=== PATIENT | female | born 1980 | race Caucasian/White ===

== ENCOUNTER 2016-08-18 05:08 | Day surgery (SDC) | payer BC ==
[2016-08-13 15:53] VITALS: BMI 25.4
[2016-08-18] MEDS ORDERED: KETOROLAC TROMETHAMINE 30 MG/1 ML VIAL ONE (10:30)
[2016-08-18] MEDS ORDERED: MIDAZOLAM HCL 2 MG/2 ML SINGLE DOSE VIAL ONE (10:31)
[2016-08-18] MEDS ORDERED: PROPOFOL 20 ML ONE ×2 (10:32→10:52)
[2016-08-18] MEDS ORDERED: LIDOCAINE HCL/PF 2% SDV 5ML VIAL ONE (10:32)
--- NOTE | 2016-08-18 10:41 | HP ---
Past Medical History - Primary Care Physician PCP:: Moon Maynard - Admission Chief Complaint: menometrorrhagia, EM polyp History of Present Illness: 35 yo f with hxof irregular vaginal bleeding , sono showed EM polyp admitted for hysteroscopy, EM polypectomy, rna explained History Source: Patient Limitations to Obtaining History: No Limitations - Past Medical History ...: 3 ...Para: 2 ...Spon : 1 Additional OB History: c/s Endocrine: Yes: Hypothyroidism - Past Surgical History Past Surgical History: Yes: Hx Myomectomy: No Hx Transabdominal Cerclage: No - Smoking History Smoking history: Never smoked Have you smoked in the past 12 months: No - Alcohol/Substance Use Hx Alcohol Use: Yes (RARE) - Social History Usual Living Arrangement: Yes: With Spouse History of Recent Travel: No Home Medications - Allergies Allergies/Adverse Reactions: Allergies Allergy/AdvReac Type Severity Reaction Status Date / Time No Known Allergies Allergy Verified 08/18/16 08:57 - Home Medications Home Medications: Ambulatory Orders Cholecalciferol (Vitamin D3) [Vitamin D3] 1,000 unit PO DAILY 08/18/16 Levothyroxine [Synthroid -] 88 mcg PO HS 08/18/16 Review of Systems - Review of Systems Constitutional: reports: No Symptoms HENT: reports: No Symptoms Neck: reports: No Symptoms Cardiovascular: reports: No Symptoms Respiratory: reports: No Symptoms Gastrointestinal: reports: No Symptoms Genitourinary: reports: Vaginal Bleeding Breasts: reports: No Symptoms Reported Musculoskeletal: reports: No Symptoms Integumentary: reports: No Symptoms Neurological: reports: No Symptoms Endocrine: reports: No Symptoms Psychiatric: reports: No Symptoms Physical Exam-[employer] Vital Signs: Vital Signs Temperature 97.9 F 08/18/16 08:54 Pulse Rate 77 08/18/16 08:54 Respiratory Rate 20 08/18/16 08:54 Blood Pressure 120/68 08/18/16 08:54 O2 Sat by Pulse Oximetry (%) 100 08/18/16 08:53 Constitutional: Yes: Well Nourished, No Distress, Calm Eyes: Yes: WNL, Conjunctiva Clear, EOM Intact HENT: Yes: WNL, Atraumatic, Normocephalic Neck: Yes: WNL, Supple, Trachea Midline Cardiovascular: Yes: WNL, Regular Rate and Rhythm Respiratory: Yes: WNL, Regular, CTA Bilaterally Gastrointestinal: Yes: WNL ...Rectal Exam: Yes: WNL Renal/: Yes: WNL External Genitalia: Yes: Normal Vaginal Exam: Yes: Normal Cervix: Yes: Normal Uterus: Yes: Normal Adnexa: Normal: Left, Right Breast(s): Yes: WNL Musculoskeletal: Yes: WNL Extremities: Yes: WNL Integumentary: Yes: WNL Neurological: Yes: WNL, Alert, Oriented ...Motor Strength: WNL Psychiatric: Yes: WNL, Alert, Oriented Problem List - Problem (1) Menometrorrhagia Code(s): N92.1 - EXCESSIVE AND FREQUENT MENSTRUATION WITH IRREGULAR CYCLE (2) Endometrial polyp Code(s): N84.0 - POLYP OF CORPUS UTERI Assessment/Plan hysteroscopy, polypectomy
[2016-08-18] MEDS ORDERED: ACETAMINOPHEN 1000 MG/100 ML VIAL (NON FORMULARY) IVPB ONE (11:14)
[2016-08-18] MEDS ORDERED: ONDANSETRON 4 MG/2 ML VIAL IVPUSH PRN (11:14)
[2016-08-18] MEDS ORDERED: oxyCODONE HCL 5 MG TABLET PO PRN ×2 (11:14→11:39)
[2016-08-18] MEDS ORDERED: LACTATED RINGERS SOLUTION 1,000 ML IV SCH (11:15)
[2016-08-18] MEDS ORDERED: ACETAMINOPHEN INJECTION 100 ML IVPB ONE (11:33)
[2016-08-18] MEDS ORDERED: IBUPROFEN 600 MG TABLET (FP) PO PRN (11:39)
[2016-08-18] MEDS ORDERED: IBUPROFEN 800 MG/8 ML IJ IVPB PRN (11:39)
[2016-08-18] MEDS ORDERED: ONDANSETRON 4 MG/2 ML VIAL IVPB PRN (11:39)
[2016-08-18] MEDS ORDERED: ELECTROLYTE-148 SOLN 1,000 ML IV SCH (11:45)
[2016-08-18 11:58] VITALS: TEMP 97.4
[2016-08-18 13:06] VITALS: BP 100/73; PULSE 76
--- NOTE | 2016-08-19 00:40 | OP ---
DATE OF OPERATION: 08/18/2016 PREOPERATIVE DIAGNOSIS: Menometrorrhagia, endometrial polyp. POSTOPERATIVE DIAGNOSIS: Menometrorrhagia, endometrial polyp. PROCEDURE: Hysteroscopy, dilation and curettage, and polypectomy. SURGEON: Mono Maynard M.D. ANESTHESIA: General. ANESTHESIOLOGIST: Elodia Maldonado M.D. ESTIMATED BLOOD LOSS: 50 mL. OPERATION: Hysteroscopy, dilation and curettage and polypectomy. SURGEON: Mono Maynard M.D. ANESTHESIA: General. OPERATION: Patient was taken to operating room, had adequate general anesthesia. Examination under anesthesia revealed the cervix to be clean, no gross lesion. Uterus was normal size, retroverted. Adnexa, no masses were palpable. Then, with a weighted speculum in the vagina, anterior lip of the cervix was grasped with a single-tooth tenaculum. Uterine cavity was sounded to 7 cm. Then the hysteroscope was introduced into the uterine cavity and the cervical canal appeared to be normal. Endometrium appeared to be normal. There was a small polyp at the fundal portion of the uterus. region was identified. No abnormality was seen. No fibroid was seen. Then hysteroscope was withdrawn, the cervix was gradually dilated with a Hegar dilator, and then uterine cavity was curetted. A small amount of tissue was obtained, then the hysteroscope was introduced, and then polyp was removed in its entirety, no complications. The patient tolerated procedure well, left the OR in good condition. MONO MAYNARD M.D. [id number]
--- NOTE | 2016-08-19 14:18 | PATH ---
Surgical Pathology Report Patient Name: LUÍS GOETZ [facility]. Rec. #: [id number] /Age/Gender: 1980 (Age: 35) / F Account: [id number] Location: [facility] SUR[facility] Taken: 08/18/2016 Received: 08/18/2016 Reported: 08/19/2016 Physicians: Mono Maynard M.D. Specimen(s) Received ENDOMETRIAL CURETTINGS Clinical History Cervical polyp Final Diagnosis ENDOMETRIUM, CURETTAGE: POLYPOID FRAGMENTS OF DISORDERED PROLIFERATIVE ENDOMETRIUM WITH FOCAL AREA SUGGESTIVE OF ENDOMETRIAL POLYP AND FOCAL STROMAL BREAKDOWN CHANGE. BACKGROUND FRAGMENTS OF PROLIFERATIVE ENDOMETRIUM. FRAGMENTS OF BENIGN ENDOCERVICAL TISSUE WITH CHRONIC CERVICITIS. FRAGMENTS OF BENIGN SQUAMOUS EPITHELIUM. Electronically Signed Jairo Prince M.D. Gross Description Received in formalin labeled "endometrial curettings" is a 4.5 x 2.8 x 0.4 cm aggregate of red-brown soft tissue fragments. The formalin is filtered and the specimen is entirely submitted in 3 cassettes. /08/18/2016 [facility]08/18/2016
== END 2016-08-18 13:06 | disposition home or self-care (01) ==
LOC: JASU-SURG 05:08
PROVIDERS: ATTEND Obstetrics & Gynecology
PROC: 0UB98ZX Excision of Uterus, Via Natural or Artificial Opening Endoscopic, Diagnostic (ICD-10-PCS; principal; 2016-08-18 10:00)
PROC: 0UDB8ZX Extraction of Endometrium, Via Natural or Artificial Opening Endoscopic, Diagnostic (ICD-10-PCS; 2016-08-18 10:00)
DX: N92.0 Excessive and frequent menstruation with regular cycle (principal); N84.0 Polyp of corpus uteri
CPT/HCPCS: 88305-TC; 94760

== ENCOUNTER 2018-06-21 05:13 | Day surgery (SDC) | payer BC ==
[2018-06-17 13:08] VITALS: BMI 26.6
--- NOTE | 2018-06-21 09:11 | HP ---
History & Physical Update - Physical Physical: No Change - Assessment Assessment: No Change - Plan Plan: No Change (H&H reviwed , no changes, for hysteroscopy, D&C , polypectomy)
[2018-06-21] MEDS ORDERED: PROPOFOL 20 ML ONE (09:56)
[2018-06-21] MEDS ORDERED: MIDAZOLAM HCL 2 MG/2 ML SINGLE DOSE VIAL ONE (09:56)
[2018-06-21] MEDS ORDERED: DEXAMETHASONE SOD PHOSPHATE 4 MG/1 ML VIAL ONE (09:57)
[2018-06-21] MEDS ORDERED: LIDOCAINE HCL/PF 2% SDV 5ML VIAL ONE (09:57)
[2018-06-21] MEDS ORDERED: DEXMEDETOMIDINE HCL 200 MCG/2 ML IVPB ONE (10:10)
[2018-06-21] MEDS ORDERED: ONDANSETRON 4 MG/2 ML VIAL IVPUSH PRN (10:28)
[2018-06-21] MEDS ORDERED: oxyCODONE HCL 5 MG TABLET PO PRN ×2 (10:28→10:40)
[2018-06-21] MEDS ORDERED: IBUPROFEN 600 MG TABLET (FP) PO PRN (10:28)
[2018-06-21] MEDS ORDERED: IBUPROFEN 800 MG/8 ML IJ IVPB PRN (10:28)
[2018-06-21] MEDS ORDERED: ELECTROLYTE-148 SOLN 1,000 ML IV SCH (10:30)
[2018-06-21] MEDS ORDERED: KETOROLAC TROMETHAMINE 30 MG/1 ML VIAL ONE (10:42)
[2018-06-21] MEDS ORDERED: LACTATED RINGERS SOLUTION 1,000 ML IV SCH (10:45)
[2018-06-21 14:21] VITALS: BP 94/56; PULSE 84; TEMP 98
[2018-06-21] MEDS ORDERED: LEVOTHYROXINE NA 88 MCG TABLET (FP) PO SCH (22:00)
--- NOTE | 2018-06-22 12:02 | OP ---
DATE OF OPERATION: 06/21/2018 PREOPERATIVE DIAGNOSES: Metrorrhagia, endometrial polyp. PROCEDURE: Hysteroscopy, dilatation and curettage and endometrial polypectomy. SURGEON: Mono Maynard MD ANESTHESIA: General. ESTIMATED BLOOD LOSS: 25 mL. OPERATION: Patient was taken to the operating room. Under adequate general anesthesia in dorsal lithotomy position examination under anesthesia revealed external genitalia to be normal. Vagina was normal. Cervix was clean, no lesion. Uterus normal size. Adnexa: No masses were palpable. Then with a weighted speculum in the vagina anterior lip of the cervix was grasped with single-tooth tenaculum. Uterine cavity was sounded to 8 cm. Then Symphion resectoscope hysteroscope was introduced. Visualization of endocervical canal appeared to be normal. There was a large 2-cm endometrial polyp noted on the posterior wall of the uterus in the mid body of the uterus. Both cornual regions were identified. No other abnormality noted. Then with the Symphion resectoscope the polyp was resected and removed in its entirety. Then endometrium was curetted. The patient tolerated the procedure well. Left the OR in good condition. Shantell [id number]
--- NOTE | 2018-06-22 15:59 | PATH ---
Surgical Pathology Report Patient Name: LUÍS GOETZ [facility]. Rec. #: [id number] /Age/Gender: 1980 (Age: 37) / F Account: [id number] Location: [facility] Taken: 06/21/2018 Received: 06/21/2018 Reported: 06/22/2018 Physicians: Mono Maynard M.D. Specimen(s) Received A: ENDOCERVICAL POLYP B: ENDOMETRIAL CURETTINGS Clinical History Endometrial polyp, irregular bleeding Final Diagnosis A. ENDOMETRIAL POLYP, HYSTEROSCOPIC POLYPECTOMY: FRAGMENTS OF ENDOMETRIAL POLYP, SUPERFICIAL MYOMETRIUM, AND BENIGN ENDOCERVICAL TISSUE. B. ENDOMETRIAL CURETTINGS, DILATION AND CURETTAGE: FRAGMENTS OF ENDOMETRIAL POLYP, PROLIFERATIVE ENDOMETRIUM, AND BENIGN CERVICAL TISSUE. Electronically Signed Anh Jarquin M.D. Gross Description A. Received in formalin labeled "endometrial polyp," is a 2.4 x 2.0 x 0.3 cm aggregate of steward soft tissue fragments. The formalin is filtered and the specimen is entirely submitted in one cassette. B. Received in formalin labeled "endometrial curettings," is a 2.1 x 2.0 x 0.2 cm aggregate of steward-brown soft tissue fragments. The formalin is filtered and the specimen is entirely submitted in one cassette. 06/21/201806/21/2018
== END 2018-06-21 13:35 | disposition home or self-care (01) ==
LOC: JASU-SURG 05:13
PROVIDERS: ATTEND Obstetrics & Gynecology
PROC: 0UJD8ZZ Inspection of Uterus and Cervix, Via Natural or Artificial Opening Endoscopic (ICD-10-PCS; 2018-06-21)
PROC: 0UB97ZX Excision of Uterus, Via Natural or Artificial Opening, Diagnostic (ICD-10-PCS; principal; 2018-06-21 10:00)
PROC: 0UDB7ZX Extraction of Endometrium, Via Natural or Artificial Opening, Diagnostic (ICD-10-PCS; 2018-06-21 10:00)
DX: N92.1 Excessive and frequent menstruation with irregular cycle (principal); N84.0 Polyp of corpus uteri
CPT/HCPCS: 84703; 88305-TC; 94760

== ENCOUNTER 2021-10-08 12:55 | Emergency (ER) | payer BC ==
[2021-10-08 13:14] VITALS: BP 106/70; PULSE 90; TEMP 98.2; BMI 27.4
[2021-10-09] MEDS ORDERED: LORazepam 1 MG TABLET ONE (06:59)
== END 2021-10-08 13:31 | disposition home or self-care (01) ==
LOC: JERFT 12:55
DX: J06.9 Acute upper respiratory infection, unspecified (principal); R05.1 Acute cough; R09.81 Nasal congestion
CPT/HCPCS: 87651; 99283-25

== ENCOUNTER 2022-01-30 14:00 | Emergency (ER) | payer BC ==
[2022-01-30 14:11] VITALS: BP 136/88; PULSE 96; RESP 18; TEMP 97.8; BMI 28.3
[2022-01-30 14:31] LABS: BASO % 0.3 % (0-2.0); EOS % 0.1 % (0-4.5); HEMATOCRIT 43.7 % (32.4-45.2); HEMOGLOBIN 14.3 GM/dL (10.7-15.3); LYMPH % 25.8 % (8-40); MCH 29.1 pg (25.7-33.7); MCHC 32.8 g/dl (32.0-36.0); MEAN CELL VOLUME 88.7 fl (80-96); MONO % 4.7 % (3.8-10.2); NEUT % 69.1 % (42.8-82.8); PH,URINE 6.5 (5.0-8.0); PLATELET COUNT 354 10^3/uL (134-434); RBC 4.92 M/mm3 (3.60-5.2); RDW 13.4 % (11.6-15.6); URINE APPEARANCE CLEAR; URINE BILIRUBIN NEGATIVE (NEGATIVE); URINE COLOR YELLOW; URINE GLUCOSE (UA) NEGATIVE (NEGATIVE); URINE KETONE NEGATIVE (NEGATIVE); URINE LEUK ESTERASE NEGATIVE (NEGATIVE); URINE NITRITE NEGATIVE (NEGATIVE); URINE PROTEIN NEGATIVE (NEGATIVE); URINE UROBILINOGEN 0.2 mg/dL (0.2-1.0)
[2022-01-30 14:40] LABS: HCG,QUALITATIVE URINE Negative
[2022-01-30] MEDS ORDERED: FLUCONAZOLE 50 MG TABLET PO ONE (14:44)
[2022-01-30] MEDS ORDERED: FLUCONAZOLE 150 MG TABLET PO ONE (14:46)
[2022-01-30 14:52] LABS: ALBUMIN 4.6 g/dl (3.4-5.0); BLOOD UREA NITROGEN 9.5 mg/dL (7-18); CALCIUM 9.2 mg/dL (8.5-10.1)
[2022-01-30 14:56] LABS: CREATININE 0.7 mg/dL (0.55-1.3)
[2022-01-30 14:57] LABS: BILIRUBIN,TOTAL 0.5 mg/dL (0.2-1); TOT PROT 7.6 g/dl (6.4-8.2)
== END 2022-01-30 18:40 | disposition home or self-care (01) ==
LOC: JER 14:00
DX: N83.202 Unspecified ovarian cyst, left side (principal)
CPT/HCPCS: 36415; 76830-TC; 80053; 81003; 84703; 85025; 87070; 87086; 87205; 99284-25

== ENCOUNTER → 2022-09-18 | Day surgery (SDC) | payer BC | END | disposition home or self-care (01) | LOC: JRADIR 09:28 | PROVIDERS: ATTEND Internal Medicine Endocrinology, Diabetes & Metabolism | PROC: 0G9K3ZX Drainage of Thyroid Gland, Percutaneous Approach, Diagnostic (ICD-10-PCS; principal; 2022-09-18) | DX: E04.1 Nontoxic single thyroid nodule (principal) | CPT/HCPCS: 10005; 76536-TC ==